=== PATIENT | female | born 2000 | race Caucasian/White ===

== ENCOUNTER 2025-03-17 20:44 | Emergency (ER) | payer MEDICAID ==
[~2025-03-17] VITALS: Ht 157.5 cm; Wt 59.1 kg
[2025-03-17 21:20] LABS: COVID AG,FIA SOURCE NASAL SWAB
[2025-03-17 21:40] LABS: RAPID GROUP A STREP NEGATIVE (NEGATIVE)
[2025-03-17 21:42] LABS: SARS-COV2 (COVID) ANTIGEN,FIA Negative (Negative)
[2025-03-17 21:43] LABS: INFLUENZA TYPE A NEGATIVE FOR TYPE A (NEGATIVE); INFLUENZA TYPE B NEGATIVE FOR TYPE B (NEGATIVE)
[2025-03-17] MEDS ORDERED: IBUP-1492 PO (22:35)
[2025-03-17] MEDS ORDERED: AMOX500C2 PO (22:35)
[2025-03-17 22:58] VITALS: BP 112/75; PULSE 80; RESP 16; TEMP 98.1; O2SAT 100
[2025-03-17] MEDS: AMOXICILLIN TRIHYDRATE 250 MG CAPSULE PO ONE (23:01)
== END 2025-03-17 23:15 | disposition home or self-care (01) ==
LOC: EMS 20:44
DX: J02.0 Streptococcal pharyngitis (principal); J45.909 Unspecified asthma, uncomplicated; Z20.822 Contact with and (suspected) exposure to COVID-19
CPT/HCPCS: 87430; 87804; 99283